=== PATIENT | male | born 1965 | race African-American/Black ===

== ENCOUNTER 2018-02-09 17:03 | Observation (INO) ==
[~2018-02-09 17:03] MED LIST: Lidocaine PF 1% Inj 5 ML Syringe INFILTRATN ONE; Phenylephrine/NS 1000 MCG/10ML Syringe IV.PUSH ONE
--- NOTE | 2018-02-09 17:40 | ED ---
HPI General Chief Complaint: Extremity Injury, Lower Stated Complaint: Stepped on catfish Time Seen by Provider: 02/09/18 17:31 History of Present Illness HPI Narrative: This is a 52-year-old male here with right foot pain. He reports yesterday while wearing rubber soled shoes he stepped on a catfish when the catfish shayne went through the shoe into the foot. He reports he had immediate pain. He reports his friend removed the shayne. Today he reports he had discomfort within the foot after walking on for long periods therefore came in for evaluation. Denies fever chills. Reports no drainage from the site. Severity is moderate. Aggravated by weightbearing. Relieved with rest. Related Data Home Medications Medication Instructions Recorded Confirmed No Known Home Medications 02/09/18 02/09/18 Allergies Allergy/AdvReac Type Severity Reaction Status Date / Time fentanyl AdvReac Intermediate ITCHY Verified 02/09/18 17:07 Review of Systems ROS: all other systems reviewed are negative [facility] Medical History Medical History Patient denies medical problems (Acute) Surgical History Surgical History No history of previous surgery (Acute) Social History Social History Substance History: No History of Abuse Second Hand Smoke Exposure: No Smoking Status: Current every day smoker Tobacco Type: Cigarettes How Often Do You Have a Drink Containing Alcohol: 2 to 4 times a month Recent Travel in [facility] within the Last 8 Weeks: No Recent Out of Country Travel within the Last 8 Weeks: No Immunization History Tetanus Immunization: Unsure Hx Influenza Vaccine This Season: No Exam Narrative Exam Narrative: GENERAL: Well-nourished, well-developed patient. SKIN: Focused skin assessment warm/dry. HEAD: Normocephalic. EYES: No injection or drainage. Neck: Supple CARDIOVASCULAR: Regular rate and rhythm without murmurs, gallops, or rubs. RESPIRATORY: Breath sounds equal bilaterally. No accessory muscle use. GASTROINTESTINAL: Abdomen soft, non-tender, nondistended. MUSCULOSKELETAL: No cyanosis, or edema. RLE: There is a puncture wound to the plantar aspect of the foot. The area is acutely tender to palpation. No induration or fluctuance. Notable area of erythema to the dorsal aspect of the foot on the opposing side of the puncture wound no palpable foreign body. Palpable DP pulse. Distal sensation intact. Brisk cap refill. Course Initial Documented Vital Signs Temperature 98.4 F 02/09/18 17:05 Pulse Rate 78 02/09/18 17:05 Respiratory Rate 16 02/09/18 17:05 Blood Pressure 112/62 02/09/18 17:05 Pulse Oximetry 99 02/09/18 17:05 Last Documented Vital Signs Temperature 98.4 F 02/09/18 17:05 Pulse Rate 78 02/09/18 20:22 Respiratory Rate 18 02/09/18 20:22 Blood Pressure 145/73 H 02/09/18 20:22 Pulse Oximetry 100 02/09/18 20:22 Medical Decision Making MDM Narrative Medical decision making narrative: 52-year-old male here with puncture wound to the right foot suspected catfish shayne retained. X-ray reveal a 10 x 2 mm radiopaque foreign body located between the second and third metatarsals. There is evidence of surrounding infection. 1819 Case was discussed with on-call dependency counselor Dr. Juaerz who would like to remove the foreign body in the OR. Requests that patient be admitted to medical service. N.p.o. after midnight in preparation for surgical removal. [address] Soriano who agrees to admit patient to their services Medical Screen Exam Complete: Yes Emergency Medical Condition: Yes Differential Diagnosis Differential Diagnosis: Puncture wound, retained foreign body, cellulitis Lab Data Result diagrams: 02/09/18 18:55 02/09/18 18:55 Lab Results 02/09/18 02/09/18 Range/Units 18:55 18:55 CBC w Diff Auto diff final WBC 13.2 H (4.0-11.0) th/mm3 RBC 4.39 L (4.50-5.90) mil/mm3 Hgb 14.3 (13.0-17.0) gm/dL Hct 42.5 (39.0-51.0) % MCV 96.9 (80.0-100.0) fL MCH 32.5 (27.0-34.0) pg MCHC 33.5 (32.0-36.0) % RDW 13.3 (11.6-17.2) % Plt Count 247 (150-450) th/mm3 MPV 9.0 (7.0-11.0) fL Neut % (Auto) 75.2 H (16.0-70.0) % Lymph % (Auto) 19.8 (9.0-44.0) % [place] % (Auto) 4.2 (0.0-8.0) % Eos % (Auto) 0.2 (0.0-4.0) % Baso % (Auto) 0.6 (0.0-2.0) % Neut # (Auto) 9.9 H (1.8-7.7) th/mm3 Lymph # (Auto) 2.6 (1.0-4.8) th/mm3 [place] # (Auto) 0.6 (0.0-0.9) th/mm3 Eos # (Auto) 0.0 (0.0-0.4) th/mm3 Baso # (Auto) 0.1 (0.0-0.2) th/mm3 WBC Differential . Differential Comment . Sodium 137 (136-145) meq/L Potassium 4.1 (3.5-5.1) meq/L Chloride 103 (98-107) meq/L Carbon Dioxide 28.0 (21.0-32.0) meq/L Anion Gap 6 (5-15) meq/L BUN 16 (7-18) mg/dL Creatinine 1.10 (0.60-1.30) mg/dL Estimated GFR 85 L (>89) mL/min Random Glucose 63 L (74-106) mg/dL Calcium 9.8 (8.5-10.1) mg/dL Imaging Data Radiologist's impression: Foot X-Ray 02/09/18 17:34 CONCLUSION: 10 x 2 mm radiopaque foreign body. Discharge Plan Discharge Details Diagnosis: Retained foreign body, Cellulitis Physicians Team ED Provider: Rasheed [facility] ED Midlevel Provider: Vianey Rushing Primary Care Provider: Primary Care Lenka,Lorraine Other Providers: Debbie Agustin ; Renate Juarez Rxs /Orders / Referrals /Forms Prescriptions: No Action No Known Home Medications RF: 0 Discharge Interventions Interventions: ED Discharge Assessment Last Done: 02/09/18 20:51 Status ED Status: Pending Admission
[2018-02-09] MEDS ORDERED: Tetanus/Diphtheria Toxoid Adult Vaccine Inj 0.5 ML Vial IM ONE (17:43)
--- NOTE | 2018-02-09 18:11 | XR ---
EXAM DATE: 02/09/2018 6:06 PM EDT AGE/SEX: 52 years / Male INDICATIONS: Pain to bottom or right foot, after attempting to kick catfish back in the water. CLINICAL DATA: This is the patient's initial encounter. Patient reports that signs and symptoms have been present for 1 day and indicates a pain score of 7/10. MEDICAL/SURGICAL HISTORY: None. None. COMPARISON: No prior exams available for comparison. FINDINGS: AP, lateral and oblique views of the right foot were obtained and demonstrate a 10 x 2 mm radiopaque foreign body located between the second and third metatarsals. There is no bony abnormality. No focal soft tissue swelling is identified. CONCLUSION: 10 x 2 mm radiopaque foreign body. Electronically signed by: Gabriele Streeter MD 02/09/2018 6:10 PM EDT
[2018-02-09] MEDS ORDERED: Clindamycin 600 mg/NS Premix 600 MG/50 ML PIGGYBACK IV.SIG ONE (18:35)
[2018-02-09 19:07] LABS: Baso # (Auto) 0.1 th/mm3 (0.0-0.2); Baso % (Auto) 0.6 % (0.0-2.0); Eos % (Auto) 0.2 % (0.0-4.0); Hematocrit 42.5 % (39.0-51.0); Hemoglobin 14.3 gm/dL (13.0-17.0); Lymph # (Auto) 2.6 th/mm3 (1.0-4.8); Lymph % (Auto) 19.8 % (9.0-44.0); Mean Corpuscular HGB Conc 33.5 % (32.0-36.0); Mean Corpuscular Hemoglobin 32.5 pg (27.0-34.0); Mean Corpuscular Volume 96.9 fL (80.0-100.0); Mono # (Auto) 0.6 th/mm3 (0.0-0.9); Mono % (Auto) 4.2 % (0.0-8.0); Neut # (Auto) 9.9 th/mm3 (1.8-7.7); Neut % (Auto) 75.2 % (16.0-70.0); Platelet Count 247 th/mm3 (150-450); Red Blood Count 4.39 mil/mm3 (4.50-5.90); Red Cell Distribution Width 13.3 % (11.6-17.2); White Blood Count 13.2 th/mm3 (4.0-11.0)
[2018-02-09 19:16] LABS: Potassium 4.1 meq/L (3.5-5.1)
[2018-02-09 19:18] LABS: Calcium 9.8 mg/dL (8.5-10.1)
[2018-02-09] MEDS: Sod Chloride 0.9% Inj 1,000 ML IV.CONT SCH (20:14)
[2018-02-10] MEDS: Clindamycin 900 mg/NS Premix 900 MG/50 ML PIGGYBACK IV.SIG SCH ×3 (04:14→20:54)
[2018-02-10 06:12] LABS: Baso # (Auto) 0.1 th/mm3 (0.0-0.2); Baso % (Auto) 1.3 % (0.0-2.0); Eos # (Auto) 0.2 th/mm3 (0.0-0.4); Eos % (Auto) 1.8 % (0.0-4.0); Hematocrit 39.3 % (39.0-51.0); Hemoglobin 13.2 gm/dL (13.0-17.0); Lymph % (Auto) 29.6 % (9.0-44.0); Mean Corpuscular HGB Conc 33.7 % (32.0-36.0); Mean Corpuscular Hemoglobin 32.9 pg (27.0-34.0); Mean Corpuscular Volume 97.7 fL (80.0-100.0); Mono # (Auto) 0.8 th/mm3 (0.0-0.9); Mono % (Auto) 7.5 % (0.0-8.0); Neut % (Auto) 59.8 % (16.0-70.0); Platelet Count 195 th/mm3 (150-450); Red Blood Count 4.02 mil/mm3 (4.50-5.90); White Blood Count 10.1 th/mm3 (4.0-11.0)
[2018-02-10 06:13] LABS: Chloride 106 meq/L (98-107); Potassium 4.2 meq/L (3.5-5.1); Sodium 139 meq/L (136-145)
[2018-02-10 06:30] LABS: Alanine Aminotransferase 24 U/L (12-78); Albumin 3.4 g/dL (3.4-5.0); Alkaline Phosphatase 79 U/L (45-117); Anion Gap 4 meq/L (5-15); Aspartate Aminotransferase 22 U/L (15-37); Blood Urea Nitrogen 13 mg/dL (7-18); Calcium 8.7 mg/dL (8.5-10.1); Carbon Dioxide 28.7 meq/L (21.0-32.0); Glomerular Filtration Rate Greater Than 89 mL/min (>89); Glucose,Random 84 mg/dL (74-106); Total Protein 7.1 g/dL (6.4-8.2)
[2018-02-10] MEDS ORDERED: Doxycycline Inj 200 MG in Sodium Chlor 0.9% Inj 250 ML IV.SIG SCH (08:00)
--- NOTE | 2018-02-10 08:36 | P.HP ---
History of Present Illness Primary Care Physician: No Primary Care Physician Chief Complaint: Kicked a catfish History of Present Illness: 52-year-old male with known history of chronic back pain who presented to the hospital because of pain in his right foot. Patient states that he was fishing and caught a catfish. He went to kick it back in the water and after several failed attempts he finally impaled his foot through his shoe with 1 of the catfish barbs. Patient kicked off his shoe which the catfish from his foot. His significant other removed the portion of the shayne that was still visible. However apparently did not get the full shayne out. Patient continued to have pain in his foot which progressively got worse so he came to emergency department for evaluation. Patient had x-ray study performed which did indicate a 10 x 2 mm radiopaque foreign body in his foot. Equine Manager was called who indicated that the patient can be placed in the hospital and they will do surgery on him in the morning. ER physician contacted the hospital team and requested observation admission for surgical intervention by access representative. - Diagnosis (1) Retained foreign body Review of Systems All other systems reviewed negative except as stated in HPI Musculoskeletal: Reports back pain Skin/Breast: Reports redness, Reports wounds PMFSH - History History Provided By: Patient, Significant Other - Medical History Medical History: Medical History (Last Updated 02/10/18 @ 08:32 by MISHEL Barton) Chronic back pain - Surgical History Surgical History: Surgical History (Last Updated 02/10/18 @ 08:32 by MISHEL Barton) History of spinal surgery - Family History Family History: Family History (Last Updated 02/10/18 @ 08:32 by MISHEL Barton) Father Family history of brain aneurysm Mother History of stroke History of diabetes mellitus - Tobacco History Second Hand Smoke Exposure: Yes Tobacco Use In Past 30 Days: Yes Smoking Status: Current every day smoker Tobacco Type: Cigarettes Packs Per Day: 0.5 Years Smoked: 35 - Alcohol History How Often Do You Have a Drink Containing Alcohol: 2 to 4 times a month - Substance Use History Substance History: Active Abuse - Substance Use Type Marijuana Status: Active Route Used: Inhalation Frequency: occasionally for back pain relief, increase appetite Reason for Use: Feels Good - Travel History Recent Travel in the [facility] Within the Last 8 Weeks: No Recent Travel Out of the Country Within the Last 8 Weeks: No - Immunization History Tetanus Immunization: Unsure Hx Influenza Vaccine This Season: No Medications and Allergies Active Medications: Active Medications Hydrocodone Bitart/Acetaminophen ([place] 10/325) 1 tab PO Q4H PRN PRN Reason: Pain 7 to 10 Last Admin: 02/10/18 08:07 Dose: 1 tab Hydrocodone Bitart/Acetaminophen ([place] 5/325) 1 tab PO Q4H PRN PRN Reason: Pain 3 to 6 Al Hydroxide/Mg Hydroxide (Milk Of Magnesia Liq) 30 ml PO Q12H PRN PRN Reason: Mild Constipation Sodium Chloride (Ns Inj) 1,000 mls @ 75 mls/hr IV.CONT .[id number] ERIC Last Infusion: 02/10/18 00:09 Dose: 75 mls/hr Clindamycin/Sodium Chloride (Cleocin 900 Mg/Ns Premix) 900 mg in 50 mls @ 100 mls/hr IV.SIG Q8H ERIC Last Infusion: 02/10/18 04:45 Dose: Infused Doxycycline Hyclate 100 mg/ (Sodium Chloride) 100 mls @ 100 mls/hr IV.SIG Q12H ERIC Last Admin: 02/10/18 08:09 Dose: 100 mls/hr Ondansetron HCl (Zofran Inj) 4 mg IV.PUSH Q6H PRN PRN Reason: NAUSEA OR VOMITING Sodium Chloride (Ns Flush) 2 ml IV.FLUSH PRN PRN PRN Reason: FLUSH AFTER USING IV ACCESS Allergies Allergy/AdvReac Type Severity Reaction Status Date / Time fentanyl AdvReac Intermediate ITCHY Verified 02/09/18 17:07 Home Medications Medication Instructions Recorded Confirmed Type No Known Home Medications 02/09/18 02/09/18 History Exam Vital signs: Vital Signs 02/09/18 17:05 02/09/18 20:22 02/09/18 21:04 Temperature 98.4 F 97.2 F L Pulse Rate 78 78 76 Respiratory Rate 16 18 20 Blood Pressure 112/62 145/73 H 133/84 Pulse Oximetry 99 100 100 Intake & Output 02/09/18 02/10/18 02/10/18 18:59 06:59 18:59 Intake Total 100 / 100 Output Total 1000 / 1000 Balance -900 / -900 Weight 61 kg 61.3 kg Intake: IV 100 / 100 Cleocin 600 mg/NS Premix 600 mg 50 / 50 In 50 ml @ 100 mls/hr IV.SIG ONCE ONE Rx#:[id number] Cleocin 900 mg/NS Premix 900 mg 50 / 50 In 50 ml @ 100 mls/hr IV.SIG Q8H [facility] Rx#:[id number] Oral 0 / 0 Output: Urine 1000 / 1000 Other: Weight On Admission 61 kg Narrative: GENERAL: Well-developed, well-nourished, in no acute distress. alert and orientated HEENT: Head is normocephalic without any lesions or masses noted. Facial features are symmetric. Eyes: Pupils equal round reactive to light. Extraocular muscles are intact. Conjunctivae were clear. Oropharyngeal: Pharynx without any erythema edema. Tongue is midline without deviation. Buccal mucosa is moist without any masses or lesions NECK: Supple without any masses. Trachea midline no deviation. No JVD, no bruits are appreciated CARDIAC: Regular rhythm, regular rate. S1/S2 are heard. No murmurs gallops or rubs. LUNGS: Clear to auscultation bilaterally. No wheeze, rhonchi or rales. No use of accessory muscles on inspiration or expiration. ABDOMEN: Soft, nontender. Nondistended. Bowel sounds heard in all 4 quadrants. No organomegaly or masses. Negative rebound, negative guarding EXTREMITIES: No edema, pulses are equal bilaterally. No cyanosis or clubbing NEUROLOGY: Mood and affect appear appropriate. Cranial nerves II through XII grossly intact. Muscle strength 5/5 in upper and lower extremities bilaterally. Deep tendon reflexes are 2+ in upper and lower extremities bilaterally. RIGHT LOWER EXTREMITY: There is a puncture wound noted on the plantar surface of the right foot. Area is painful on palpation. No fluctuance was appreciated , no exudates were appreciated. Results - Labs CBC & Chem 7: 02/10/18 05:40 02/10/18 05:40 Labs: Laboratory Results - last 24 hr 02/09/18 02/09/18 02/10/18 18:55 18:55 05:40 CBC w Diff Auto diff final Auto diff final WBC 13.2 H 10.1 RBC 4.39 L 4.02 L Hgb 14.3 13.2 Hct 42.5 39.3 MCV 96.9 97.7 MCH 32.5 32.9 MCHC 33.5 33.7 RDW 13.3 13.0 Plt Count 247 195 MPV 9.0 10.0 Neut % (Auto) 75.2 H 59.8 Lymph % (Auto) 19.8 29.6 [place] % (Auto) 4.2 7.5 Eos % (Auto) 0.2 1.8 Baso % (Auto) 0.6 1.3 Neut # (Auto) 9.9 H 6.0 Lymph # (Auto) 2.6 3.0 Shannon # (Auto) 0.6 0.8 Eos # (Auto) 0.0 0.2 Baso # (Auto) 0.1 0.1 WBC Differential . . Differential Comment . . Sodium 137 Potassium 4.1 Chloride 103 Carbon Dioxide 28.0 Anion Gap 6 BUN 16 Creatinine 1.10 Estimated GFR 85 L Random Glucose 63 L Calcium 9.8 Total Bilirubin AST ALT Alkaline Phosphatase Total Protein Albumin 02/10/18 05:40 CBC w Diff WBC RBC Hgb Hct MCV MCH MCHC RDW Plt Count MPV Neut % (Auto) Lymph % (Auto) Shannon % (Auto) Eos % (Auto) Baso % (Auto) Neut # (Auto) Lymph # (Auto) Shannon # (Auto) Eos # (Auto) Baso # (Auto) WBC Differential Differential Comment Sodium 139 Potassium 4.2 Chloride 106 Carbon Dioxide 28.7 Anion Gap 4 L BUN 13 Creatinine 0.98 Estimated GFR Greater than 89 Random Glucose 84 Calcium 8.7 D Total Bilirubin 0.6 AST 22 ALT 24 Alkaline Phosphatase 79 Total Protein 7.1 Albumin 3.4 - Imaging Impressions Foot X-Ray 02/09/18 17:34 CONCLUSION: 10 x 2 mm radiopaque foreign body. Caprini VTE Risk Assessment Caprini VTE Risk Assessment: No/Low Risk (score <= 1) Caprini Risk Assessment Model: Point Value = 1 Point Value = 2 Point Value = 3 Point Value = 5 Age 41-60 Minor surgery BMI > 25 kg/m2 Swollen legs Varicose veins or History of unexplained or recurrent spontaneous Oral contraceptives or hormone replacement Sepsis (< 1 month) Serious lung disease, including pneumonia (< 1 month) Abnormal pulmonary function Acute myocardial infarction Congestive heart failure (< 1 month) History of inflammatory bowel disease Medical patient at bed rest Age 61-74 Arthroscopic surgery Major open surgery (> 45 min) Laparoscopic surgery (> 45 min) Malignancy Confined to bed (> 72 hours) Immobilizing plaster cast Central venous access Age >= 75 History of VTE Family history of VTE Factor V Leiden Prothrombin [id number] Lupus anticoagulant Anticardiolipin antibodies Elevated serum homocysteine Heparin-induced thrombocytopenia Other congenital or acquired thrombophilia Stroke (< 1 month) Elective arthroplasty Hip, pelvis, or leg fracture Acute spinal cord injury (< 1 month) Prophylaxis Regimen: Total Risk Factor Score Risk Level Prophylaxis Regimen 0-1 Low Early ambulation 2 Moderate Order ONE of the following: *Sequential Compression Device (SCD) *Heparin 5000 units SQ BID 3-4 Higher Order ONE of the following medications: *Heparin 5000 units SQ TID *Enoxaparin/Lovenox 40 mg SQ daily (WT < 150 kg, CrCl > 30 mL/min) *Enoxaparin/Lovenox 30 mg SQ daily (WT < 150 kg, CrCl > 10-29 mL/min) *Enoxaparin/Lovenox 30 mg SQ BID (WT < 150 kg, CrCl > 30 mL/min) AND/OR *Sequential Compression Device (SCD) 5 or more Highest Order ONE of the following medications: *Heparin 5000 units SQ TID (Preferred with Epidurals) *Enoxaparin/Lovenox 40 mg SQ daily (WT < 150 kg, CrCl > 30 mL/min) *Enoxaparin/Lovenox 30 mg SQ daily (WT < 150 kg, CrCl > 10-29 mL/min) *Enoxaparin/Lovenox 30 mg SQ BID (WT < 150 kg, CrCl > 30 mL/min) AND *Sequential Compression Device (SCD) Assessment and Plan - Assessment (1) Retained foreign body Code(s): Z18.9 - Retained foreign body fragments, unspecified material Status : Acute - Plan Foreign body retained in the right foot -Patient has catfish shayne retained in the right foot between the second and third metatarsals -Patient continued on doxycycline -Podiatry plans on doing surgical intervention today -Any pain control Urinary retention -Likely related to postanesthesia -Bladder scan as needed -Straight cath as needed -Start Flomax 0.4 mg daily DVT prevention -Sequential compression devices Discharge Planning: Discharge once cleared by podiatry
--- NOTE | 2018-02-10 11:35 | MB ---
cc: Renate Juarez DPM DATE: 02/10/2018 CHIEF COMPLAINT: Right foot foreign body. HISTORY OF PRESENT ILLNESS: Mr. Reed is a 52-year-old male patient who was fishing and stepped on a catfish and was impaled with a catfish shayne which was identified on x-ray, but not able to be removed in the emergency department. The decision was made to admit the patient so that it could be removed in the operating room to prevent future infection. The patient states that it is a little bit tender, but otherwise he is fine if he avoids weightbearing. PAST MEDICAL HISTORY: Chronic back pain. PAST SURGICAL HISTORY: Spinal surgery. FAMILY HISTORY: Noncontributory. SOCIAL HISTORY: The patient smokes 1/2 pack of cigarettes per day for his adult life. He denies any alcohol abuse. Smokes marijuana occasionally. ALLERGIES: FENTANYL. PHYSICAL EXAMINATION: VITAL SIGNS: Temperature is 96.1, pulse is 57, respiratory rate 20, blood pressure 121/59 and pulse oximetry 99% O2 on room air. EXTREMITIES: The patient has palpable DP and PT pulses. Capillary refill time less than 3 seconds. Gross sensation is intact. There is a small puncture wound, which is sealed to the plantar aspect of the right foot. No drainage or erythema at this time. Severe sensitivity to touch. LABORATORY DATA: White count 10.0, hemoglobin 13.2, hematocrit 39.3, platelets 195. Sodium 139, potassium 4.2, chloride 106, carbon dioxide 28.7, BUN 13, glucose 84. Radiographs show a 10 x 2 mm radiopaque foreign body within the 2nd interspace. No gas in the soft tissues. No fractures or dislocations. ASSESSMENT AND PLAN: 1)Right foot foreign body. -The patient is n.p.o., we will plan for retrieval and removal of the foreign body in the operating room today. -Continue antibiotics and proper pain medications. -The patient will likely be heel weightbearing in a postoperative shoe after surgery today. Thank you for this consultation and allowing me to be involved in this patient's care. Renate Juarez DPM [facility]/ , 11:12 AM , 11:19 AM KATARINA
--- NOTE | 2018-02-10 11:41 | ECG ---
Date Performed: 02/10/2018 Time Performed: 10:53:00 PTAGE: 52 years EKG: SINUS BRADYCARDIA MINIMAL VOLTAGE CRITERIA FOR LVH, CONSIDER NORMAL VARIANT BORDERLINE ECG PREVIOUS TRACING : 11/08/2013 23.04 Compared to previous tracing, heart rate has decreased. DOCTOR: Mendoza Irizarry Interpretating Date/Time 02/10/2018 11:39:55
[2018-02-10] MEDS ORDERED: Bupivacaine PF 0.5% Inj 30 ML Vial ONE (11:43)
[2018-02-10] MEDS ORDERED: Famotidine PF Inj 20 MG/2 ML Vial ONE (11:50)
[2018-02-10] MEDS ORDERED: Morphine Inj 4 MG/ML Vial ONE ×4 (11:56→14:13)
[2018-02-10] MEDS ORDERED: Gadobutrol PF 7.5 MMOL/7.5 ML Vial (for RAD) IV.SIG ONE (16:25)
[2018-02-10] MEDS: Sod Chloride 0.9% Inj 1,000 ML IV.CONT SCH (17:01)
--- NOTE | 2018-02-10 17:46 | MR ---
EXAM DATE: 02/10/2018 4:46 PM EDT AGE/SEX: 52 years / Male INDICATIONS: . Right foot pain. Catfish yesika removed. CLINICAL DATA: This is the patient's subsequent encounter. Patient reports that signs and symptoms h ave been present for 2 days and indicates a pain score of 3/10. MEDICAL/SURGICAL HISTORY: None. Fusion, lumbar. Testicular surgery. Yesika removed from right fo ot. COMPARISON: No prior exams available for comparison. TECHNIQUE: Multiplanar, multisequence MRI examination was performed without contrast and after th e intravenous administration of 6 ml Gadavist (gadobutrol) single exam dose. FINDINGS: Ill-defined dorsal superficial soft tissue edema of the forefoot. Ill-defined deep soft tissue edema involving the interosseous musculature about the second and third metatarsal shafts. Focal magnetic s usceptibility artifact in the subcutaneous dorsal soft tissues at the level of the second and third m etatarsal necks indicating possible foreign body. Several smaller foci of magnetic susceptibility art ifact/hypointensity are seen in the deep interosseous musculature between the first and second metata rsal shafts and the second and third metatarsal shafts. These findings indicate possible postsurgical change, foreign bodies or foci of gas. No organized abscess identified. No bone marrow signal abnormality. All of the visualized tendons are intact. On the postcontrast images, there is ill-defined enhancement of the deep soft tissue/interosseous mus culature suggesting myositis. No evidence of abnormal bony enhancement. CONCLUSION: 1. Ill-defined dorsal superficial soft tissue edema. Deep midfoot muscular edema and enhancement sug gesting infection in the proper clinical setting. No evidence of abscess. No evidence of osteomyeliti s. 2. Focus of magnetic susceptibility artifact in the dorsal superficial soft tissues and several scat tered foci of magnetic susceptibility in the forefoot deep soft tissues artifact could be due to prio r surgery, foreign bodies, or foci of gas. Electronically signed by: Luis Angel Pulido MD 02/10/2018 5:45 PM EDT
[2018-02-10] MEDS ORDERED: Morphine Sulfate Inj 2 MG/ML Vial IV.PUSH ONE (20:01)
--- NOTE | 2018-02-10 21:53 | MP ---
cc: Renate Juarez DPM DATE OF OPERATION: 02/10/2018 SURGEON: Renate Juarez DPM WAREHOUSEMAN: None. PREOPERATIVE DIAGNOSIS: Right foot foreign body. POSTOPERATIVE DIAGNOSIS: Right foot foreign body. PROCEDURE PERFORMED: Right foot incision and drainage. PATHOLOGY SENT: None. ANESTHESIA: General. HEMOSTASIS: Pneumatic ankle tourniquet at 250 mmHg for 53 minutes. ESTIMATED BLOOD LOSS: Less than 10 mL INJECTABLES: Marcaine plain 0.5%. COMPLICATIONS: None. INDICATIONS: The patient was admitted through the emergency department after stepping on a catfish shayne approximately 3 days ago. He has a small puncture wound on the plantar aspect of the foot which is tender, difficult to weight bear on. The consent was signed. The procedure was explained. No guarantees were given. PROCEDURE: Under mild sedation, the patient was brought into the operating room, placed on the operating table in supine position. Following IV sedation, pneumatic ankle tourniquet was placed around the right ankle. The foot was then scrubbed, prepped, and draped in the usual aseptic manner. Attention was directed to the plantar aspect of the foot where a small puncture wound could be noted in the second interspace. A small stab incision was created at the puncture site, and hemostats were used to feel for any foreign body materials. However, nothing could be felt at this time, so the incision was lengthened to approximately 2 cm. Again, no foreign body could be identified or felt at this time. A small stab incision was made at the dorsal aspect of the foot to help connect the puncture wound throughout the interspace. The area was flushed with copious amounts of sterile saline. Some fibrotic tissue was removed, and after approximately 45 minutes of thorough investigation, the area was flushed with copious amounts of sterile saline, and a C-arm was brought into the room in order to further help evaluate. Upon evaluation with the C-arm, there was no clearly identifiable foreign body as there was in the preoperative radiograph. Despite not observing the removal of the foreign body myself, it does appear that it was removed with the incision and drainage. The incisions were closed using 3-0 Prolene with minimal skin tension. A postoperative MRI will be obtained just to confirm the absence of the foreign body. Marcaine 0.5% plain 10 mL was injected into the surgical site. Sterile dressings of Adaptic, 4 x 4's, and Rico were applied to the patient's right foot. Prior to dressing application, a pneumatic ankle tourniquet was released, noted prompt hyperemic response to all digits of the right foot. The patient tolerated the procedure and the anesthesia well and recovered in the PACU for a period of time before being discharged back to his room with written and oral postoperative instructions. ROSEANNE Pozo/manasa , 07:30 PM , 07:38 PM
[2018-02-11] MEDS: Sod Chloride 0.9% Inj 1,000 ML IV.CONT SCH ×2 (02:59→17:41)
[2018-02-11] MEDS: Clindamycin 900 mg/NS Premix 900 MG/50 ML PIGGYBACK IV.SIG SCH ×3 (02:59→20:00)
--- NOTE | 2018-02-11 10:55 | P.PN ---
Subjective Interval history: 52-year-old male who is seen and examined today in follow-up for foreign body in foot. Patient did have episodes of urinary retention status post anesthesia yesterday. However Zendejas was removed this morning and he is able to make urine at this time. He does state that in the past he used to be on Flomax, however he stopped taking it because it caused impotence. Patient's significant other was concerned that since he has this piece of fish stop in his foot will he turn into a catfish man. Vital signs are stable, patient remains afebrile. Physical Exam Vital signs: Vital Signs 02/10/18 13:28 02/10/18 13:41 02/10/18 13:55 Temperature 97.6 F Pulse Rate 60 56 L 66 Respiratory Rate 18 18 18 Blood Pressure 123/63 139/55 L 127/52 L Pulse Oximetry 100 100 100 02/10/18 14:12 02/10/18 14:42 02/10/18 16:00 Temperature 97.6 F 99.2 F Pulse Rate 78 85 Respiratory Rate 18 20 20 Blood Pressure 158/65 H 143/76 H Pulse Oximetry 100 96 02/10/18 17:29 02/10/18 18:12 02/10/18 20:00 Temperature 97.6 F 96 F L Pulse Rate 54 L 64 Respiratory Rate 20 20 20 Blood Pressure 167/92 H 163/91 H Pulse Oximetry 99 100 02/11/18 00:00 02/11/18 04:00 02/11/18 08:00 Temperature 96.2 F L 99.9 F H 97.1 F L Pulse Rate 55 L 71 64 Respiratory Rate 20 20 21 Blood Pressure 137/73 99/57 L 119/59 L Pulse Oximetry 100 100 99 Intake & Output 02/10/18 02/11/18 02/11/18 18:59 06:59 18:59 Intake Total 1700 / 1700 1100 / 1100 240 / 240 Output Total 700 / 700 Balance 1700 / 1700 400 / 400 240 / 240 Intake: IV 1250 / 1250 1100 / 1100 NS Inj 1,000 ML @ 75 mls/hr IV. 1000 / 1000 1000 / 1000 CONT .[id number] ON LICENSE OF [facility] Rx#: [id number] Ofirmev Inj 1,000 mg In 100 ml 100 / 100 @ 0 mls/hr IV.SIG .STK-MED ONE Rx#:[id number] Cleocin 900 mg/NS Premix 900 mg 50 / 50 100 / 100 In 50 ml @ 100 mls/hr IV.SIG Q8H ERIC Rx#:[id number] Doxy 100 Inj 100 MG In NS Inj 100 / 100 100 ML @ 100 mls/hr IV.SIG Q12H ERIC Rx#:[id number] Oral 250 / 250 240 / 240 Anesthesia Amount 200 / 200 Output: Urine Amount (Catheter) 700 / 700 Straight 700 / 700 Other: # Voids 550 # Bowel Movements 0 Narrative: GENERAL: Well-developed, well-nourished, in no acute distress. alert and orientated HEENT: Head is normocephalic without any lesions or masses noted. Facial features are symmetric. Eyes: Extraocular muscles are intact. Conjunctivae were clear. NECK: Supple without any masses. Trachea midline no deviation. No JVD, CARDIAC: Regular rhythm, regular rate. S1/S2 are heard. No murmurs gallops or rubs. LUNGS: Clear to auscultation bilaterally. No wheeze, rhonchi or rales. No use of accessory muscles on inspiration or expiration. ABDOMEN: Soft, nontender. Nondistended. Bowel sounds heard in all 4 quadrants. No organomegaly or masses. Negative rebound, negative guarding EXTREMITIES: No edema, pulses are equal bilaterally. No cyanosis or clubbing NEUROLOGY: Mood and affect appear appropriate. Cranial nerves II through XII grossly intact. Moving all extremities, speech is clear RIGHT LOWER EXTREMITY: Patient's foot is bandaged, - Urinary Catheter Management Straight Cath placed during this visit: yes, but has since been removed by the nurse Reason for continuing: Acute urinary retention Insertion date: 02/10/18 Insertion time: 23:30 Removal date: 02/11/18 Removal time: 07:15 Results - Labs CBC & Chem 7: 02/10/18 05:40 02/10/18 05:40 - Imaging Impressions Foot MRI 02/10/18 00:00 CONCLUSION: 1. Ill-defined dorsal superficial soft tissue edema. Deep midfoot muscular edema and enhancement suggesting infection in the proper clinical setting. No evidence of abscess. No evidence of osteomyelitis. 2. Focus of magnetic susceptibility artifact in the dorsal superficial soft tissues and several scattered foci of magnetic susceptibility in the forefoot deep soft tissues artifact could be due to prior surgery, foreign bodies, or foci of gas. Assessment and Plan - Assessment (1) Retained foreign body Code(s): Z18.9 - Retained foreign body fragments, unspecified material Status : Acute - Plan Foreign body retained in the right foot -Patient has catfish shayne retained in the right foot between the second and third metatarsals -Patient continued on doxycycline -Podiatry is performed surgical intervention, however was unsuccessful at retrieving the foreign body -MRI was performed which did show soft tissue edema. Deep midfoot muscular edema and enhancement suggesting infection in the proper setting. No abscess, no osteomyelitis. -Continue pain control Leukocytosis, resolved -Appear to be from concentration -Continue follow CBC urinary retention -Likely related to postanesthesia -Bladder scan as needed -Straight cath as needed -Continue Flomax 0.4 mg daily DVT prevention -Sequential compression devices Discharge Planning: Discharge once cleared by podiatry
--- NOTE | 2018-02-11 19:48 | P.PNPOD ---
Subjective Interval history: Patient seen bedside postop day 1. Denies any nausea vomiting fevers or chills. States his pain is well controlled. Physical Exam Vital signs: Vital Signs 02/10/18 20:00 02/11/18 00:00 02/11/18 04:00 Temperature 96 F L 96.2 F L 99.9 F H Pulse Rate 64 55 L 71 Respiratory Rate 20 20 20 Blood Pressure 163/91 H 137/73 99/57 L Pulse Oximetry 100 100 100 02/11/18 08:00 02/11/18 12:00 02/11/18 16:00 Temperature 97.1 F L 98.2 F 97.9 F Pulse Rate 64 64 82 Respiratory Rate 21 20 22 Blood Pressure 119/59 L 111/62 128/73 Pulse Oximetry 99 99 100 Intake & Output 02/11/18 02/11/18 02/12/18 06:59 18:59 06:59 Intake Total 1100 / 1100 2855 / 2855 Output Total 700 / 700 902 / 902 Balance 400 / 400 1952 Intake: IV 1100 / 1100 2135 / 2135 NS Inj 1,000 ML @ 75 mls/hr IV. 1000 / 1000 1984 CONT .[id number] ERIC Rx#: [id number] Cleocin 900 mg/NS Premix 900 mg 100 / 100 50 / 50 In 50 ml @ 100 mls/hr IV.SIG Q8H ERIC Rx#:[id number] Doxy 100 Inj 100 MG In NS Inj 100 / 100 100 ML @ 100 mls/hr IV.SIG Q12H ERIC Rx#:[id number] Oral 240 / 240 Oral Supplement 480 / 480 Output: Urine 900 / 900 Stool 2 / 2 Urine Amount (Catheter) 700 / 700 Straight 700 / 700 Other: Date of Last Bowel Movement 02/11/18 Narrative: Sutures intact with skin well coapted no periwound erythema noted, no drainage noted, tenderness to palpation to incision sites noted. Palpable DP/PT pulses with capillary refill time intact to digits 1 through 5 right foot. Medications and Allergies Active Medications: Active Medications Hydrocodone Bitart/Acetaminophen ([place] 10/325) 1 tab PO Q4H PRN PRN Reason: Pain 7 to 10 Last Admin: 02/11/18 17:37 Dose: 1 tab Hydrocodone Bitart/Acetaminophen ([place] 5/325) 1 tab PO Q4H PRN PRN Reason: Pain 3 to 6 Al Hydroxide/Mg Hydroxide (Milk Of Terese Liq) 30 ml PO Q12H PRN PRN Reason: Mild Constipation Sodium Chloride (Ns Inj) 1,000 mls @ 75 mls/hr IV.CONT .[id number] ERIC Last Admin: 02/11/18 17:41 Dose: 75 mls/hr Clindamycin/Sodium Chloride (Cleocin 900 Mg/Ns Premix) 900 mg in 50 mls @ 100 mls/hr IV.SIG Q8H ERIC Last Infusion: 02/11/18 14:07 Dose: Infused Doxycycline Hyclate 100 mg/ (Sodium Chloride) 100 mls @ 100 mls/hr IV.SIG Q12H [facility] Last Infusion: 02/11/18 15:49 Dose: Infused Ondansetron HCl (Zofran Inj) 4 mg IV.PUSH Q6H PRN PRN Reason: NAUSEA OR VOMITING Last Admin: 02/10/18 21:42 Dose: 4 mg Sodium Chloride (Ns Flush) 2 ml IV.FLUSH PRN PRN PRN Reason: FLUSH AFTER USING IV ACCESS Last Admin: 02/10/18 21:43 Dose: 2 ml Tamsulosin HCl (Flomax) 0.4 mg PO DAILY [facility] Last Admin: 02/11/18 08:34 Dose: 0.4 mg Allergies Allergy/AdvReac Type Severity Reaction Status Date / Time fentanyl AdvReac Intermediate ITCHY Verified 02/09/18 17:07 Home Medications Medication Instructions Recorded Confirmed Type No Known Home Medications 02/09/18 02/09/18 History Results - Labs CBC & Chem 7: 02/10/18 05:40 02/10/18 05:40 Assessment and Plan - Plan 52-year-old male status post incision and drainage secondary to foreign body, postop day 1 date of surgery 02/[address] Juarez Patient was seen and evaluated there is noted to be resolving edema and erythema Surgical sites with no drainage or acute signs of infection Patient okay to be discharged per podiatry He will follow-up in office with Dr. Juarez within 1 week of discharge Patient is to remain nonweightbearing with heel touch Physical therapy to crutch train, walker training patient Dressing was changed Xeroform, 4 x 4's, Rico, Taz were applied Discharge and appropriate antibiotics
[2018-02-12] MEDS: Sod Chloride 0.9% Inj 1,000 ML IV.CONT SCH (01:20)
[2018-02-12] MEDS: Clindamycin 900 mg/NS Premix 900 MG/50 ML PIGGYBACK IV.SIG SCH ×2 (04:09→13:13)
[2018-02-12 08:39] VITALS: RESP 18
--- NOTE | 2018-02-12 11:33 | P.DS ---
Date of admission: 02/09/18 19:25 Primary care physician: No Primary Care Physician Attending physician on discharge: Archie Soriano Anticipated date of discharge: 02/12/18 Brief History from admission: 52-year-old male with known history of chronic back pain who presented to the hospital because of pain in his right foot. Patient states that he was fishing and caught a catfish. He went to kick it back in the water and after several failed attempts he finally impaled his foot through his shoe with 1 of the catfish barbs. Patient kicked off his shoe which the catfish from his foot. His significant other removed the portion of the shayne that was still visible. However apparently did not get the full shayne out. Patient continued to have pain in his foot which progressively got worse so he came to emergency department for evaluation. Patient had x-ray study performed which did indicate a 10 x 2 mm radiopaque foreign body in his foot. Board Liner Operator was called who indicated that the patient can be placed in the hospital and they will do surgery on him in the morning. ER physician contacted the hospital team and requested observation admission for surgical intervention by electronics research engineer. DS: Diagnosis - Discharge Diagnosis (1) Retained foreign body Status: Acute DS: Medications - Discharge Medications Prescriptions: doxycycline monohydrate 100 mg PO BID #20 tab hydrocodone-acetaminophen 1 tab PO Q4H PRN #12 tab PRN Reason: Acute Pain tamsulosin 0.4 mg PO DAILY #30 cap DS: Summary Hospital Course: 52-year-old male who originally presented the hospital after unsuccessfully trying to kick a catfish back into the water by impaling his foot with a shayne that broke off into his foot. Patient had x-rays performed which did indicate a foreign body. Podiatry was consulted who took the patient to the OR and despite not observing the removal of the foreign body it appeared that the removal was done during the incision and drainage. MRI was done postoperatively and did not indicate any foreign body at that time. Patient did develop postoperative urinary retention. Patient does have history of benign prostatic hypertrophy in which he used to take Flomax, however he discontinued on his own because it caused erectile dysfunction. Patient was started on Flomax, Zendejas was removed and patient is urinating on his own at this time. He states that he still having slow stream but it is improving. Patient is doing well at this time. Podiatry indicated the patient is stable for discharge with outpatient follow-up in 1 week on appropriate antibiotics. Patient is supposed to be nonweightbearing with heel support, use of crutches. Physical therapy was consulted in trying the patient on the use of crutches. Patient does not have insurance or outpatient follow-up. city manager was consulted to arrange patient care assistance, blue card to obtain medications. Mandatory referrals were made to follow-up with Dr. Juarez. Patient clinically stable this time. We will plan discharge accordingly. - Time Spent with Patient Total time spent providing and/or coordinating discharge services: Greater than 30 minutes - Quality: VTE Deep Vein Thrombosis/Pulmonary Embolism Present on Admission: No Exam Vital signs: Vital Signs 02/11/18 12:00 02/11/18 16:00 02/11/18 20:00 Temperature 98.2 F 97.9 F 100 F H Pulse Rate 64 82 67 Respiratory Rate 20 22 20 Blood Pressure 111/62 128/73 132/66 Pulse Oximetry 99 100 100 02/12/18 00:00 02/12/18 08:00 Temperature 99.4 F 99.4 F Pulse Rate 75 71 Respiratory Rate 20 18 Blood Pressure 126/60 133/74 Pulse Oximetry 100 100 Intake & Output 02/11/18 02/12/18 02/12/18 18:59 06:59 18:59 Intake Total 2855 / 2855 2680 / 2680 1100 / 1100 Output Total 902 / 902 Balance 1952 / 1952 2680 / 2680 1100 / 1100 Weight 62 kg Intake: IV 2135 / 2135 2200 / 2200 1100 / 1100 NS Inj 1,000 ML @ 75 mls/hr IV. 1984 CONT .[id number] ERIC Rx#: [id number] Cleocin 900 mg/NS Premix 900 mg 50 / 50 100 / 100 In 50 ml @ 100 mls/hr IV.SIG Q8H ERIC Rx#:[id number] Doxy 100 Inj 100 MG In NS Inj 100 / 100 100 / 100 100 / 100 100 ML @ 100 mls/hr IV.SIG Q12H ERIC Rx#:[id number] Oral 240 / 240 480 / 480 Oral Supplement 480 / 480 Output: Urine 900 / 900 Stool 2 / 2 Other: # Voids 4 Date of Last Bowel Movement 02/11/18 02/09/18 Narrative: GENERAL: Well-developed, well-nourished, in no acute distress. alert and orientated HEENT: Head is normocephalic without any lesions or masses noted. Facial features are symmetric. Eyes: Extraocular muscles are intact. Conjunctivae were clear. NECK: Supple without any masses. Trachea midline no deviation. No JVD, CARDIAC: Regular rhythm, regular rate. S1/S2 are heard. No murmurs gallops or rubs. LUNGS: Clear to auscultation bilaterally. No wheeze, rhonchi or rales. No use of accessory muscles on inspiration or expiration. ABDOMEN: Soft, nontender. Nondistended. Bowel sounds heard in all 4 quadrants. No organomegaly or masses. Negative rebound, negative guarding EXTREMITIES: No edema, pulses are equal bilaterally. No cyanosis or clubbing NEUROLOGY: Mood and affect appear appropriate. Cranial nerves II through XII grossly intact. Moving all extremities, speech is clear RIGHT LOWER EXTREMITY: Patient's foot is bandaged, Results Procedures completed during hospitalization: 02/10/18: Right foot incision and drainage - Impressions ITS Impressions Foot X-Ray 02/09/18 17:34 CONCLUSION: 10 x 2 mm radiopaque foreign body. Foot MRI 02/10/18 00:00 CONCLUSION: 1. Ill-defined dorsal superficial soft tissue edema. Deep midfoot muscular edema and enhancement suggesting infection in the proper clinical setting. No evidence of abscess. No evidence of osteomyelitis. 2. Focus of magnetic susceptibility artifact in the dorsal superficial soft tissues and several scattered foci of magnetic susceptibility in the forefoot deep soft tissues artifact could be due to prior surgery, foreign bodies, or foci of gas. Discharge Plan - Discharge Disposition Patient Disposition: 01 Discharge Home - Discharge Condition Condition: Stable - Discharge Order Discharge Orders: Discharge Order (Routine); Ordered 02/12/18 Ordered By: Sherman Desai Podiatry Clear for Discharge (Routine); Ordered 02/11/18 Ordered By: Tata Granda - Discharge Details Anticipated Discharge Date: 02/12/18 - Physicians Team Primary Care Provider: Primary Care Lenka,Lorraine Attending Provider: Archie Soriano Other Providers: Renate Juarez, ROSEANNE
[2018-02-12 13:34] VITALS: TEMP 98.5
[2018-02-12 13:35] VITALS: BP 127/89; PULSE 61; O2SAT 100
== END 2018-02-12 16:25 | disposition home or self-care (01) ==
LOC: PHEFT 17:03 → PH3 17:03
PROVIDERS: ADMIT Family Medicine; ATTEND Family Medicine
DX: N40.1 Benign prostatic hyperplasia with lower urinary tract symptoms; F17.210 Nicotine dependence, cigarettes, uncomplicated; F12.90 Cannabis use, unspecified, uncomplicated; L03.90 Cellulitis, unspecified; S91.341A Puncture wound with foreign body, right foot, initial encounter; Z18.9 Retained foreign body fragments, unspecified material; Z83.3 Family history of diabetes mellitus; W45.8XXA Other foreign body or object entering through skin, initial encounter; R33.8 Other retention of urine